=== PATIENT | female | born 1980 | race Caucasian/White ===

== ENCOUNTER 2021-04-04 07:58 | Outpatient (CLI) | payer OTHER | END 2021-04-04 07:59 | disposition home or self-care (01) | LOC: CSHMAMMO 07:58 | PROVIDERS: ATTEND Obstetrics & Gynecology | DX: Z12.31 Encounter for screening mammogram for malignant neoplasm of breast (principal) | CPT/HCPCS: 77063; 77067 ==

== ENCOUNTER 2022-12-25 14:28 | Outpatient (CLI) | payer BC | END 2022-12-25 14:29 | disposition home or self-care (01) | LOC: CSHMAMMO 14:28 | PROVIDERS: ATTEND Obstetrics & Gynecology | DX: Z12.31 Encounter for screening mammogram for malignant neoplasm of breast (principal) | CPT/HCPCS: 77063; 77067 ==

== ENCOUNTER 2023-11-12 09:38 | Day surgery (SDC) | payer OTHER ==
[2023-11-12] MEDS ORDERED: PROPOFOL 40 ML ONE (10:36)
[2023-11-12] MEDS ORDERED: Lidocaine 1% PF 5 ML VIAL ONE (10:36)
[2023-11-12] MEDS ORDERED: Propofol 1,000 MG/100 ML VIAL IV ONE (12:25)
== END 2023-11-12 13:57 | disposition home or self-care (01) ==
LOC: CSHSDC 09:38
PROVIDERS: ATTEND Internal Medicine Gastroenterology
PROC: 0DBP8ZZ Excision of Rectum, Via Natural or Artificial Opening Endoscopic (ICD-10-PCS; principal; 2023-11-12)
DX: K62.1 Rectal polyp (principal); K64.8 Other hemorrhoids; R19.5 Other fecal abnormalities; F17.210 Nicotine dependence, cigarettes, uncomplicated
CPT/HCPCS: 88305; J2704